=== PATIENT | female | born 1955 | race African-American/Black ===

== ENCOUNTER 2024-04-23 09:20 | Outpatient (OUT) | payer MEDICARE, SELFPAY ==
--- NOTE | 2024-04-23 09:35 | US_ITS ---
The [address] [address] Patient Name: OSIRIS PERKINS MRN: [id number] date: 1955 Sex: F Assigned Patient Location: Current Patient Location: US Accession/Order Number: [id number] Exam Date: 04/23/2024 12:52 Report Date: 04/23/2024 13:03 At the request of: ARNULFO MOORE Procedure: US thyroid THYROID ULTRASOUND COMPARISON: CT chest 06/11/2021 CLINICAL DATA: Hyperparathyroidism with hypercalcemia The right thyroid lobe measures 5.2 x 2.0 x 2.4 cm. The left lobe measures 4.9 x 1.9 x 2.3 cm. The isthmus measures 3 - 4 mm. Thyroid echotexture is mildly heterogeneous. Multiple solid-appearing thyroid nodules are present bilaterally. On the right at the upper pole, there is a nearly isoechoic nodule with hypoechoic rim measuring 9 x 7 x 9 mm. At the mid to lower pole, there is an additional heterogeneous, slightly hyperechoic nodule with hypoechoic rim measuring 12 x 8 x 12 mm. At the midpole posteriorly, there is a hypoechoic nodule measuring 8 x 6 x 6 mm. This does appear to be within the thyroid lobe. On the left, there is a hypoechoic nodule at the superior pole measuring 6 x 5 x 5 mm . At the mid pole, there is a hypoechoic nodule measuring 6 x 4 x 5 mm. No definite nodules were imaged outside the thyroid gland to confirm a parathyroid adenoma. US/US thyroid IMPRESSION: MULTIPLE SMALL BILATERAL THYROID NODULES (TI-RADS 3 - 4). BECAUSE OF THE SMALL SIZE, ULTRASOUND FOLLOW-UP IN ONE YEAR IS SUGGESTED. NO CONVINCING PARATHYROID ADENOMA. FOLLOW-UP WITH NUCLEAR MEDICINE STUDY AND/OR [address] COULD BE CONSIDERED. Impression dictated by: Rosalva Oliver M.D.04/23/2024 1:03 PM Dictation Location: [place] [address] Electronically authenticated by: [id number] Y Date: 04/23/2024 13:03
== END 2024-04-23 09:21 | disposition home or self-care (01) ==
LOC: US 09:25
PROVIDERS: PCP Internal Medicine; Visit Provider Internal Medicine
DX: E21.3 Hyperparathyroidism, unspecified (principal); E04.2 Nontoxic multinodular goiter
CPT/HCPCS: 76536